=== PATIENT | male | born 1970 | race Caucasian/White ===

== ENCOUNTER → 2020-10-05 | Outpatient (CLI) | payer BC ==
[~2020-10-05] MED LIST: ASPIRIN EC81 MG PO; ATORVASTATIN CA20 MG PO; CLOPIDOGREL75 MG PO; GLIPIZIDE10 MG PO; LISINOPRIL5 MG PO; LOPRESSOR 25 MG25 MG PO; NITROGLYCERIN0.4 MG SL
[2020-10-05 09:57] LABS: BUN/CREATININE RATIO 21 (0-10)
[2020-10-06 10:14] LABS: CREATININE, URINE 58.1 mg/dL (Not Estab.)
[2020-10-07 20:10] LABS: CHOLESTEROL, TOTAL 145 mg/dL (100-199); HDL SIZE 8.3 nm (>=9.2); HDL-C 39 mg/dL (>39); HDL-P (TOTAL) 25.1 umol/L (>=30.5); LARGE HDL-P <1.3 umol/L (>=4.8); LARGE VLDL-P 1.2 nmol/L (<=2.7); LDL SIZE 20.3 nm (>20.5); LDL SIZE 20.3 nm (>=20.8); LDL-C 93 mg/dL (0-99); LDL-P 1350 nmol/L (<1000); LP-IR SCORE 60 (<=45); SMALL LDL-P 772 nmol/L (<=527); TRIGLYCERIDES 66 mg/dL (0-149)
== END ==
LOC: LAB 09:07
PROVIDERS: Emergency Medicine
DX: E11.65 Type 2 diabetes mellitus with hyperglycemia (principal); E78.2 Mixed hyperlipidemia; R53.83 Other fatigue
CPT/HCPCS: 36415; 80053; 80061; 82043; 82570; 83036; 83704

== ENCOUNTER → 2021-09-28 | Outpatient (CLI) | payer BC ==
[2021-09-28 09:25] LABS: HEMOGLOBIN 14.8 gm/dl (14.0-17.5); RED BLOOD COUNT 4.87 M/UL (4.20-5.50); WHITE BLOOD COUNT 6.4 K/UL (4.5-11.0)
[2021-09-28 09:37] LABS: BUN/CREATININE RATIO 20 (0-10)
[2021-09-29 12:14] LABS: CREATININE, URINE 49.5 mg/dL (Not Estab.); MICROALB/CREAT RATIO <6 (0-29)
[2021-09-30 13:12] LABS: CHOLESTEROL, TOTAL 174 mg/dL (100-199); HDL SIZE 8.1 nm (>=9.2); HDL-C 45 mg/dL (>39); HDL-P (TOTAL) 28.9 umol/L (>=30.5); LARGE HDL-P <1.3 umol/L (>=4.8); LARGE VLDL-P 2.8 nmol/L (<=2.7); LDL-C 114 mg/dL (0-99); LDL-P 1857 nmol/L (<1000); LP-IR SCORE 67 (<=45); SMALL LDL-P 1209 nmol/L (<=527); TRIGLYCERIDES 81 mg/dL (0-149); VLDL SIZE 43.1 nm (<=46.6)
== END ==
LOC: LAB 08:36
PROVIDERS: Emergency Medicine
DX: I25.10 Atherosclerotic heart disease of native coronary artery without angina pectoris (principal); F41.1 Generalized anxiety disorder; F33.0 Major depressive disorder, recurrent, mild; E11.9 Type 2 diabetes mellitus without complications
CPT/HCPCS: 36415; 80053; 80061; 82043; 82570; 83036; 83704; 84153; 84443; 84550; 85025

== ENCOUNTER → 2021-11-10 | Outpatient (CLI) | payer BC ==
[2021-11-10 10:11] LABS: BUN/CREATININE RATIO 25 (0-10)
== END ==
LOC: LAB 08:34
PROVIDERS: Legal Medicine
DX: E11.65 Type 2 diabetes mellitus with hyperglycemia (principal)
CPT/HCPCS: 36415; 80053; 83036; 84681